=== PATIENT | female | born 1980 | race Caucasian/White ===

== ENCOUNTER → 2017-02-22 | Day surgery (SDC) | payer OTHER ==
[~2017-02-22] VITALS: Ht 154.9 cm; Wt 53.2 kg
== END | disposition home or self-care (01) ==
LOC: FAS 07:28
DX: K29.80 Duodenitis without bleeding (principal); K21.0 Gastro-esophageal reflux disease with esophagitis; Z88.8 Allergy status to other drugs, medicaments and biological substances; Z79.899 Other long term (current) drug therapy; Z98.890 Other specified postprocedural states; F17.210 Nicotine dependence, cigarettes, uncomplicated
CPT/HCPCS: 84703; 88305; J2704

== ENCOUNTER → 2022-05-19 | Day surgery (SDC) | payer OTHER ==
[~2022-05-19] VITALS: Ht 149.9 cm; Wt 65.9 kg
[~2022-05-19] MED LIST: B COMPLEX1 EACH PO; DICLOFENAC SODI75 MG PO; IBUPROFEN800 M1 PO; NORETHINDRONE0.35 MG PO; OMEPRAZOLE 20MG20 MG PO; PAROXETINE 20MG20 MG PO
[2022-05-19 11:38] LABS: HCG (URINE) SCREEN NEGATIVE (NEGATIVE)
[2022-05-19 11:59] LABS: HCT 41.3 % (37.0-47.0); HGB 13.9 g/dl (12.5-16.0); MCH 33.6 pg (25.0-31.0); MCHC 33.7 g/dL (32.0-36.0); MCV 99.8 fL (78.0-100.0); MPV 8.6 fL (6.0-9.5); RBC 4.14 M/uL (4.20-5.40); RDW 12.5 % (11.5-14.0); WBC 14.8 K/uL (4.0-10.5)
== END | disposition home or self-care (01) ==
LOC: FAS 11:13
PROVIDERS: Obstetrics & Gynecology
DX: N93.9 Abnormal uterine and vaginal bleeding, unspecified (principal); K21.9 Gastro-esophageal reflux disease without esophagitis; M19.90 Unspecified osteoarthritis, unspecified site; F17.210 Nicotine dependence, cigarettes, uncomplicated; F32.A Depression, unspecified; Z79.899 Other long term (current) drug therapy; Z91.010 Allergy to peanuts; Z91.018 Allergy to other foods; Z72.89 Other problems related to lifestyle
CPT/HCPCS: 36415; 84439; 84443; 84703; J1100; J1885; J2250; J2405; J2704; J3010; J7120